=== PATIENT | female | born 1990 | race African-American/Black ===

== ENCOUNTER 2018-03-23 18:40 | Emergency (ER) | payer OTHER ==
[~2018-03-23] VITALS: Ht 162.6 cm; Wt 77.1 kg
[2018-03-23 19:32] VITALS: BP 116/70
[2018-03-23] MEDS ORDERED: PROMETH-CODEIN 65 ML PO (20:37)
[2018-03-23] MEDS ORDERED: PREDNISONE 20 M20 MG PO (20:37)
== END 2018-03-23 20:55 | disposition home or self-care (01) ==
LOC: ER 18:40
DX: J20.8 Acute bronchitis due to other specified organisms (principal); B97.89 Other viral agents as the cause of diseases classified elsewhere; R51 Headache